=== PATIENT | male | born 1970 | race African-American/Black ===

== ENCOUNTER 2016-08-28 09:52 | Emergency (ER) | payer MEDICARE, MEDICAID ==
[~2016-08-28] VITALS: Ht 180.3 cm; Wt 80.0 kg
[~2016-08-28 09:52] MED LIST: ALBU1AER INH; ALBU8I INH; MONT10TA2 PO; PRED20 PO
[2016-08-28 09:53] VITALS: BP 164/90; PULSE 102; RESP 16; TEMP 98.3; O2SAT 94
[2016-08-28 10:05] VITALS: BP 173/96; PULSE 93; RESP 22; O2SAT 90
[2016-08-28] MEDS ORDERED: ALBU.5I NEB (10:05)
[2016-08-28] MEDS ORDERED: ALBUAER3 INH (10:05)
[2016-08-28] MEDS ORDERED: predniSONE 20 MG TAB PO ONE (10:45)
[2016-08-28] MEDS ORDERED: SODIUM CHLORIDE 0.9% FLUSH 5 ML FLUSH IVF PRN (10:45)
[2016-08-28 10:50] VITALS: O2SAT 97
[2016-08-28] MEDS: RESP: ALBUTEROL 2.5 MG/IPRATROPIUM 0.5 MG NEB (SCH) INH ×3 (10:51→11:37)
[2016-08-28 10:52] VITALS: O2SAT 99
[2016-08-28] MEDS ORDERED: FLUTI220I INH (12:41)
[2016-08-28] MEDS ORDERED: VENTAER INH (12:41)
[2016-08-28] MEDS ORDERED: ALBU0.08 NEB (12:41)
[2016-08-28] MEDS ORDERED: PRED-503 PO (12:41)
--- NOTE | 2016-08-28 12:41 | PD ---
HPI Chief Complaint: Respiratory Symptoms Time Seen by Provider: 10:08 Travel History International Travel<30 days: No Contact w/Intl Traveler<30days: No Traveled to known affect area: No History of Present Illness HPI Is a 46-year-old man with a history of asthma presents to the emergency department complaining of worsening asthma symptoms. He is a history of pretty persistent asthma he states he gets up multiple times per night for respiratory difficulties. He uses albuterol inhalers and nebulizers every couple hours which seems to help some. He ran out of both of these medications. He's had a little bit a URI symptoms but no fevers. No productive cough. He otherwise had been feeling generally well and healthy prior to this. History Past Medical History Narrative Medical Asthma Tetanus Vaccination: < 5 Years Influenza Vaccination: Yes Social History Alcohol Use: Yes Tobacco Use: No Allergies-Medications (Allergen,Severity, Reaction): Coded Allergies: Seafood (Verified Allergy, Severe, Anaphylaxis, 08/28/16) Reported Meds & Prescriptions Reported Meds & Active Scripts Active Deltasone 20 Mg Tab (Prednisone) 20 Mg Tab 40 Mg PO DAILY Ventolin Hfa (Albuterol Sulfate) 8 Gm Aero 2 Puff INH Q6 * SHAKE WELL BEFORE USE * Singulair (Montelukast Sodium) 10 Mg Tab 10 Mg PO HS Reported Proair Hfa 8.5 GM Inh (Albuterol Sulfate) 90 Mcg/Act Aer 2 Puff INH Q4-6H PRN 108 mcg/actuation Albuterol Neb (Albuterol Sulfate) 2.5 Mg/0.5 Ml Neb 2.5 Mg NEB Q4HR NEB PRN Note: The Albuterol Sulfate Inhalation Solution is concentrated and must be diluted. Read complete instructions carefully before using. Proair Hfa (Albuterol Sulfate) 8.5 Gm Aero 2 Puff INH Q4H PRN * SHAKE WELL BEFORE USE * Review of Systems Except as stated in HPI: all other systems reviewed are Neg Physical Exam Narrative GENERAL: Well-appearing 46-year-old man, mild respiratory distress. EYES: Pupils equal and round. No scleral icterus. No injection or drainage. ENT: No nasal bleeding or discharge. Mucous membranes pink and moist. NECK: Trachea midline. No JVD. CARDIOVASCULAR: Regular rate and rhythm. No murmur appreciated. RESPIRATORY: Mild respiratory distress. Able speak in full sentences. Moderate diffuse wheezing throughout the posterior lung dia. GASTROINTESTINAL: Abdomen soft, non-tender, nondistended. Hepatic and splenic margins not palpable. MUSCULOSKELETAL: No obvious deformities. No edema. NEUROLOGICAL: Awake and alert. No obvious cranial nerve deficits. Motor grossly within normal limits. Normal speech. PSYCHIATRIC: Appropriate mood and affect; insight and judgment normal. Data Data Last Documented VS Vital Signs Date Time Temp Pulse Resp B/P Pulse Ox O2 Delivery O2 Flow Rate FiO2 08/28/16 10:52 99 Nasal Cannula 2.00 08/28/16 10:06 22 08/28/16 10:05 93 173/96 08/28/16 09:53 98.3 Orders Oximetry (08/28/16 10:38) Oxygen Administration (08/28/16 10:38) Sodium Chloride 0.9% Flush (Ns Flush) (08/28/16 10:45) Albuterol-Ipratropium Neb (Duoneb Neb) (08/28/16 10:45) Prednisone (Deltasone) (08/28/16 10:45) MDM Medical Decision Making Medical Screen Exam Complete: Yes Emergency Medical Condition: Yes Differential Diagnosis COPD, asthma, pneumonia, bronchitis, pneumothorax, other Narrative Course medical decision making Well 46-year-old man with persistent severe asthma, here with an exacerbation. Looks well. No evidence of pneumonia or pneumothorax. Recommend supportive treatment. Improved after bronchodilators and steroids. We'll start him on inhaled steroids as well. Diagnosis Primary Impression: Asthma exacerbation Additional Instructions: Take steroids as prescribed. Take albuterol every 4-6 hours as needed. Follow-up with your primary doctor in the next 5-7 days. Return to the emergency department for any worsening trouble breathing, or any other new or worsening symptoms. Med/Other Pt SpecificInfo: Prescription(s) given Scripts Fluticasone 12 GM Inh (Flovent Hfa 12 GM Inh)220 Mcg/Act Inh2 Puff INH BID #1 INHALER Ref 0 Use daily at the same time. Prov:Kenneth Bush MD 08/28/16 Albuterol Neb 2.5 Mg/3 Ml Neb2.5 Mg NEB Q4HR NEB PRN (SHORTNESS OF BREATH) #60 NEBULE Ref 0 Prov:Kenneth Bush MD 08/28/16 Albuterol 18 GM Inh (Ventolin Hfa 18 GM Inh)90 Mcg/Act Aer2 Puff INH Q4-6H PRN ( SHORTNESS OF BREATH) #1 INHALER Prov:Kenneth Bush MD 08/28/16 Prednisone (Deltasone)20 Mg Tab40 Mg PO DAILY 10 Days Prov:Kenneth Bush MD 08/28/16 Disposition: 01 DISCHARGE HOME Condition: Stable Kenneth Bush MD Aug 28, 2016 12:41
== END 2016-08-28 13:11 | disposition home or self-care (01) ==
LOC: NEPA 09:52
DX: J45.901 Unspecified asthma with (acute) exacerbation (principal)
CPT/HCPCS: 94640; 94664; 99283; J7512

== ENCOUNTER → 2017-08-05 | Outpatient (CLI) | payer MEDICARE, OTHER ==
[~2017-08-05] MED LIST changes: +ALBU0.08 NEB; -ALBU1AER INH; -ALBU8I INH; +FLUT1INH7 INH; -MONT10TA2 PO; +MONT10TA4 PO; -PRED20 PO; +VENTAER INH
--- NOTE | 2017-08-07 10:09 | RSPPFT ---
DATE OF PROCEDURE: 08/05/17 COMMENTS: Spirometry with FVC of 2.0, FEV1 of 0.9, FEV1/FVC ratio at 46%. Flow volume loops suggest airways obstruction. IMPRESSION: 1. Severe airways obstruction. 2. Positive and significant response to acutely inhaled bronchodilator.
== END ==
LOC: HRSP 10:08
PROVIDERS: ATTEND Family Medicine
DX: J45.909 Unspecified asthma, uncomplicated (principal)
CPT/HCPCS: 94060